=== PATIENT | female | born 1965 | race Asian ===

== ENCOUNTER 2024-03-14 02:20 | Emergency (ER) | payer BC ==
[~2024-03-14] VITALS: Ht 152.4 cm; Wt 99.8 kg
[2024-03-14 02:27] VITALS: BP_SYST 189; PULSE 91; RESP 22; TEMP 96.5; O2SAT 96
[2024-03-14] MEDS: ALBUTEROL SULFATE 0.083% 2.5 MG/3 ML VIAL.NEB INH ONE (02:48)
[2024-03-14 03:17] LABS: BASOPHILS # (AUTO) 0.1 K/uL (0.0-0.2); BASOPHILS % (AUTO) 0.7 % (0.0-2.0); EOSINOPHILS # (AUTO) 0.5 K/uL (0.0-0.4); EOSINOPHILS % (AUTO) 7.6 % (0.0-4.0); HEMATOCRIT 39.6 % (36-48); HEMOGLOBIN 13.5 g/dL (12.0-16.0); LYMPHOCYTES # (AUTO) 2.4 K/uL (1.0-5.5); LYMPHOCYTES % (AUTO) 33.1 % (20.5-51.5); MEAN CORPUSCULAR HEMOGLOBIN 33 pg (27-31); MEAN CORPUSCULAR HGB CONC 34 % (32-36); MEAN CORPUSCULAR VOLUME 97 fL (79.0-98.0); MONOCYTES # (AUTO) 0.5 K/uL (0.0-1.0); MONOCYTES % (AUTO) 6.6 % (1.7-9.3); NEUTROPHILS # (AUTO) 3.7 K/uL (1.8-7.7); PLATELET COUNT (AUTO) 274 K/uL (130-430); RED CELL DISTRIBUTION WIDTH 14.2 % (9.0-15.0); WHITE BLOOD COUNT (AUTO) 7.1 K/uL (4.8-10.8)
[2024-03-14 03:25] LABS: ALBUMIN 3.7 g/dL (3.4-4.8); BILIRUBIN,DIRECT 0.1 mg/dL (0.0-0.3); CALCIUM 8.9 mg/dL (8.4-11.0); CREATININE 0.69 mg/dL (0.55-1.30); POTASSIUM 3.7 mmol/L (3.5-5.1); TOTAL BILIRUBIN 0.4 mg/dL (0.0-1.0); TOTAL PROTEIN, SERUM 8.2 g/dL (6.4-8.3)
[2024-03-14] MEDS: MAGNESIUM SULFATE 50 ML IV ONE (03:28)
[2024-03-14] MEDS: methylPREDNISolone SOD SUCC/PF 62.5 MG/ML VIAL IVP ONE (03:28)
[2024-03-14] MEDS ORDERED: ALBMDI INH (06:15)
[2024-03-14] MEDS ORDERED: PRED20TA PO (06:15)
[2024-03-14] MEDS ORDERED: FLUT1BLS3 INH (06:15)
[2024-03-14] MEDS ORDERED: ALBU2.5V7 INH (06:15)
[2024-03-14 06:18] VITALS: BP_SYST 153; PULSE 82; RESP 18; TEMP 97.2; O2SAT 93
== END 2024-03-14 06:18 | disposition home or self-care (01) ==
LOC: SED 02:20
DX: J45.901 Unspecified asthma with (acute) exacerbation (principal); Z79.899 Other long term (current) drug therapy
CPT/HCPCS: 36415; 71045; 80048; 80076; 85025; 87040; 94640; 96365; 96366; 96375; 99284; J2930; J3475